=== PATIENT | male | born 1965 | race Caucasian/White ===

== ENCOUNTER 2016-12-25 12:08 | Emergency (ER) ==
[2016-12-25] MEDS ORDERED: SOLU-MEDROL ONE (12:20)
[2016-12-25] MEDS ORDERED: BENADRYL ONE (12:20)
[2016-12-25] MEDS ORDERED: NS 1,000 ML ONE (12:20)
[2016-12-25] MEDS ORDERED: PEPCID ONE (12:21)
--- NOTE | 2016-12-25 12:34 | PROVIDER DOCUMENTATION ---
HPI-General Adult - General Source: patient - History of Present Illness -Gen Adult Nature of Presenting Problems: Pt is 51 y/o M presents to the ED with allergic reactions. Pt states he was working under his car and started tingling and itching all over. Pt states he had a reactions like this to fire ants but denies feeling a bite. Pt denies chest pain and SOB. Pt also states he was unsure of taking his HTN meds so he took the meds [employer]. Pt states might have taken HTN meds twice. Location of Pain/Injury: reports: generalized Pain Radiation: reports: no radiation Quality of Pain: reports: other (tingling and itching) Severity: reports: moderate Onset/Duration: reports: just prior to arrival Timing: reports: still present Context/Activities at Onset: reports: light activity Modifying Factors: improves with: nothing Associated Symptoms: reports: rash (generalized), other (itchy throat.). denies : anxiety, arm pain, back/neck pain, chest pain, constipation, cough, diaphoresis, diarrhea, dizziness, EENT symptoms, fatigue, fever/chills, genitourinary problems, headaches, heartburn, joint pain, loss of appetite, malaise, muscle aches, sinus congestion/drainage, nausea, seizure, shortness of breath, sensory/motor loss, pain with inspiration, swelling/mass in abdomen, syncope, vomiting, weakness, trouble walking Similar Symptoms Previously?: No Recently seen or treated by another doctor?: No <Betty Stern - Last Filed: 12/25/16 14:42> <Lindy Ramos - Last Filed: 12/25/16 16:27> - General Chief Complaint: Allergic Reaction Stated Complaint: ALLERGIC REACTION Time Seen by Provider: 12/25/16 12:21 Allergies/Adverse Reactions: Patient Allergies Allergy/AdvReac Type Severity Reaction Status Date / Time No Known Allergies Allergy Verified 12/25/16 12:15 Home Medications: Home Medication List Medication Instructions Recorded Confirmed Last Taken Type Epinephrine [Epipen 2-Sadi] 0.3 mg IM PRN PRN #1 pen.injctr 12/25/16 Unknown Rx Famotidine [Pepcid] 20 mg PO BID #20 tablet 12/25/16 Unknown Rx Furosemide [Lasix] 10 mg PO DAILY 12/25/16 12/25/16 Unknown History Hydroxyzine [Atarax] 25 mg PO TID PRN #20 tablet 12/25/16 Unknown Rx Lisinopril 20 mg PO BID 12/25/16 12/25/16 Unknown History Prednisone 20 mg PO DAILY #15 tablet 12/25/16 Unknown Rx Review of Systems - Adult - REVIEW OF SYSTEMS - ADULT Constitutional: denies: chills, fever Eyes: denies: blurred vision, double vision Ears, Nose, Mouth & Throat: denies: ear pain, nose pain, throat pain Cardiovascular: denies: chest pain, heart murmur, irregular heart rate Respiratory: denies: cough, shortness of breath, wheezing Gastrointestinal: denies: abdominal pain, diarrhea, nausea, vomiting Genitourinary: denies: dysuria, hematuria Musculoskeletal: denies: bone pain, joint pain, neck pain Integumentary: reports: hives (abdomen), itching (generalized), rash ( generalized) Neurological: denies: dizziness/vertigo, headache/migraines Psychiatric: reports: no symptoms reported Endocrine: reports: no symptoms reported Hematologic/Lymphatic: reports: no symptoms reported Allergic/Immunologic: reports: no symptoms reported All Other Systems: Reviewed and Negative <Betty tSern - Last Filed: 12/25/16 14:42> Past History - Adult - PAST MEDICAL HISTORY-ADULT Review of Records: reports: Nursing Assessment Review, Medications Reviewed, Social history reviewed & non-contributory. Major Childhood Illnesses: reports: denies history Cardiovascular: reports: HTN, hyperlipidemia Respiratory: reports: denies history Gastrointestinal: reports: denies history Obstetrical/Gynecological: reports: denies history Genitourinary: reports: denies history Musculoskeletal: reports: denies history Neurological: reports: denies history Endocrine/Immune: reports: denies history Other Conditions: reports: denies history - PRIOR SURGERIES/PROCEDURES Surgical/Procedure History: reports: CABG - IMMUNIZATION STATUS Childhood Immunizations: See Nurse Assessment Flu Vaccine: See Nurse Assessment - FAMILY HISTORY Family History: reviewed, not pertinent - SOCIAL HISTORY Smoking: denies Substance Use: alcohol Alcohol Use Frequency: every day Number of drinks per typical drinking period:: 3-4 drinks Living Situation: family <Betty Stern - Last Filed: 12/25/16 14:42> Physical Exam-General - PHYSICAL EXAM-ADULT Initial Vital Signs Reviewed: Yes - CONSTITUTIONAL General Appearance: alert, mild distress. negative: appears well (ill in appearance) - EYES Eyes: other (bilateral eye lid swelling and redness) - HEAD, EARS, NOSE, MOUTH & THROAT HENMT: normocephalic/atraumatic, moist mucous membranes, TMs normal, pharyngeal erythema - NECK Neck: non-tender, full range of motion, supple, normal inspection - RESPIRATORY Respiratory: chest non-tender, lungs clear, normal breath sounds, no pleuratic chest pain, no respiratory distress, no accessory muscle use - CARDIOVASCULAR Cardiovascular: normal peripheral pulses, regular rate, rhythm, no edema, no gallop, no JVD, no murmur - GASTROINTESTINAL (ABDOMEN) Abdominal Exam: normal bowel sounds, non tender, soft, no organomegaly, other ( hive like rash on abdomen) - LYMPHATIC Lymphatic: no adenopathy - MUSCULOSKELETAL Back Exam: normal inspection, no CVA tenderness, no vertebral tenderness Extremity: normal range of motion, non-tender, normal gait, normal inspection, no pedal edema, no calf tenderness, normal capillary refill, pelvis stable - SKIN Integumentary: normal turgor, warm/dry, rash (generalized), other (hive like rash on abdomen) - NEUROLOGIC Neurologic: web pressman II-XII nml as tested, grossly normal, no motor/sensory deficits - PSYCHIATRIC Psych/Mental Status: normal mood/affect, normal thought content, normal thought process, oriented x 3 <Betty Stern - Last Filed: 12/25/16 14:42> Progress - PLAN OF CARE/RESULTS Progress/Plan/Lab Results: Orders Category Date Time Status 0.9% Sodium Chloride Inj [Ns] 1,000 ml Med 12/25/16 12:20 Discontinued .ROUTE As Directed Diphenhydramine [Benadryl] Med 12/25/16 12:20 Discontinued 50 mg .ROUTE .STK-MED ONE Famotidine [Pepcid] Med 12/25/16 12:21 Discontinued 40 mg .ROUTE .STK-MED ONE Methylprednisolone Sod Succ [Solu-Medrol] Med 12/25/16 12:20 Discontinued 125 mg .ROUTE .STK-MED ONE Vital Signs - 24 hr 12/25/16 12:11 Temperature 97.6 F Pulse Rate 89 Respiratory 16 Rate Blood Pressure 99/53 O2 Sat by Pulse 92 L Oximetry <Betty Stern - Last Filed: 12/25/16 14:42> - REASSESSMENT Reassessment #1 Time Reassessed: 14:50 Status: improving (uvula still swollen; hives present) Reassessment #2 Time Reassessed: 16:21 Status: improving (uvula swelling decreased, no hives present) <Richard,Lindy SumanKike - Last Filed: 12/25/16 16:27> Departure <Betty Stern - Last Filed: 12/25/16 14:42> - Departure Time of Disposition Order: 16:21 Certified Medical Emergency: Emergent <Lindy Ramos - Last Filed: 12/25/16 16:27> - Departure DIAGNOSIS: Allergic reaction Qualifiers: Encounter type: initial encounter Qualified Code(s): T78.40XA - Allergy, unspecified, initial encounter Disposition: HOME 01 Condition: Stable Additional Instructions: Take medications as directed. Return if shortness of breath or throat swelling. Follow up with PCP in 3 days for recheck. ED Follow Up Instructions: You have been treated by a care provider in the Emergency Department. These instructions are being provided to you so you can have an understanding of how to care for yourself upon discharge. Upon discharge from the Emergency Department, you are responsible for making arrangements for follow-up care by a physician of your choice. Take all prescribed medications as directed. Return to the Emergency Department immediately for any new or worsening symptoms. You may call the Physician Referral phone number at [phone] to obtain a list of Physicians who are taking new patients. Prescriptions: Epinephrine [Epipen 2-Sadi] 0.3 mg IM PRN PRN #1 pen.injctr PRN Reason: Allergy Hydroxyzine [Atarax] 25 mg PO TID PRN #20 tablet PRN Reason: Itching Famotidine [Pepcid] 20 mg PO BID #20 tablet Prednisone 20 mg PO DAILY #15 tablet Attestation - Scribe Verification/Attestation Scribe:: Betty Stern Acting as Scribe for:: Lindy Rodolfo Richard Scribe documention review:: This chart was documented by a scribe and accurately reflects the service the provider performed and the decisions made by the provider. <Betty Stern - Last Filed: 12/25/16 14:42> - Physician/ MARCELO Attestation The physician spent face to face time with patient:: Yes <Lindy Ramos - Last Filed: 12/25/16 16:27> Physician Attestation
[2016-12-25] MEDS ORDERED: EPINEPHRINE SUBQ ONE ×2 (12:43→15:03)
[2016-12-25] MEDS ORDERED: PEPCID IV ONE (12:43)
[2016-12-25] MEDS ORDERED: SODIUM CHLORIDE 0.9% INJ ONE (12:43)
[2016-12-25] MEDS ORDERED: SOLU-MEDROL IV ONE ×2 (12:43→15:02)
[2016-12-25] MEDS ORDERED: NS 1,000 ML IV ONE (12:43)
[2016-12-25] MEDS ORDERED: BENADRYL IV ONE (12:43)
[2016-12-25 16:37] VITALS: BP 129/087
== END 2016-12-25 16:37 | disposition home or self-care (01) ==
LOC: P.ED 12:08
DX: T78.40XA Allergy, unspecified, initial encounter (principal); R20.2 Paresthesia of skin; R21 Rash and other nonspecific skin eruption; L50.9 Urticaria, unspecified; I10 Essential (primary) hypertension; E78.5 Hyperlipidemia, unspecified; Z95.1 Presence of aortocoronary bypass graft; Z79.899 Other long term (current) drug therapy
CPT/HCPCS: 96361; 96372; 96374; 96375; 96376; J0171; J1200; J2930; J7030; S0028